=== PATIENT | male | born 1980 | race Caucasian/White ===

== ENCOUNTER 2019-12-11 15:01 | Outpatient (REF) | payer OTHER, SELFPAY | END 2019-12-11 15:02 | disposition home or self-care (01) | LOC: HO.LAB 15:01 | PROVIDERS: Visit Provider Internal Medicine | DX: Z20.828 Contact with and (suspected) exposure to other viral communicable diseases (principal) | CPT/HCPCS: 36415; 87635 ==

== ENCOUNTER 2022-12-30 01:08 | Emergency (ER) | payer BC, SELFPAY ==
--- NOTE | 2022-12-30 | ECG_ITS ---
Test Reason : CHEST PAIN Blood Pressure : / mmHG Vent. Rate : 096 BPM Atrial Rate : 096 BPM P-R Int : 142 ms QRS Dur : 080 ms QT Int : 334 ms P-R-T Axes : 064 026 051 degrees QTc Int : 421 ms Normal sinus rhythm Normal ECG No previous ECGs available Referred By: Generic ED Physician Electronically Signed By:YOMAIRA GOMEZ MD
--- NOTE | ~2022-12-30 | XR_ITS ---
EXAMINATION: XR CHEST CLINICAL INFORMATION: Left-sided chest pain COMPARISON: None available. TECHNIQUE: 2 views of the chest were obtained. FINDINGS: Slight bronchial thickening which can be seen in setting of infectious/inflammatory etiology. Bibasilar atelectasis. No pneumothorax. Trachea is midline. Cardiomediastinal silhouette is not enlarged. No large pleural effusion. Osseous structures are intact. Soft tissues are unremarkable. XR/XR chest 2V IMPRESSION: 1. Slight bronchial thickening which can be seen in setting of infectious/inflammatory etiology. 2. Bibasilar atelectasis.
[2022-12-30 01:21] VITALS: BP 122/75; PULSE 94; RESP 16; TEMP 36.5; O2SAT 99; BMI 24.4
[2022-12-30 01:44] LABS: MANUAL DIFF FLAG NO
[2022-12-30 01:45] LABS: Basophils Percent Auto 0.5 % (0-2); Eosinophils Absolute Auto 0.1 X10*3/uL (0.0-0.4); Eosinophils Percent Auto 1.6 % (0-4); Hemoglobin 17.6 g/dl (14.0-18.0); Imm Gran Abs Auto 0.02 X10*3/uL (0.00-0.03); Imm Gran Pct Auto 0.2 % (0.0-0.4); Lymphocytes Absolute Auto 3.2 X10*3/uL (1.2-4.9); Lymphocytes Percent Auto 39.3 % (20-40); Mean Corpuscular HGB Conc 34.5 g/dl (31.0-36.0); Mean Corpuscular Volume 89.8 fL (80.0-98.0); Mean Platelet Volume 9.5 fL (9.4-12.4); Monocytes Absolute Auto 0.8 X10*3/uL (0.1-1.2); Monocytes Percent Auto 9.4 % (2-11); Platelet Count 290 X10*3/uL (160-400); Red Blood Count 5.68 X10*6/uL (4.60-5.80); Red Cell Distribution Width 12.3 % (11.0-16.0); White Blood Count 8.2 X10*3/uL (4.8-10.8)
[2022-12-30 02:00] LABS: Anion Gap 17 (12-20); Blood Urea Nitrogen 6 mg/dL (9-16); Calcium 9.5 mg/dL (8.4-10.2); Carbon Dioxide 21 mmol/L (22-29); Chloride 105 mmol/L (96-108); Creatinine Clr Calc Pharmacy 130.3; Estimated Glomerular Filt Rate > 60; Glucose Random 110 mg/dL (60-115); Potassium 3.8 mmol/L (3.3-5.1); Sodium 139 mmol/L (135-145)
[2022-12-30 02:06] LABS: Troponin-I High Sensitivity < 2.7 ng/L (<3.5-35.0)
[2022-12-30] MEDS: Acetaminophen 325 MG TABLET 975 MG PO (02:11)
[2022-12-30 06:30] VITALS: BP 106/69; PULSE 88; RESP 17; TEMP 36.7; O2SAT 94
--- NOTE | 2022-12-30 06:49 | ED.CHESTPAIN ---
HPI - Chest Pain General Chief Complaint: Chest Pain Stated Complaint: Chest Pain Time Seen by Provider: 12/30/22 06:28 Source: patient Mode of arrival: ambulatory Limitations: no limitations History of Present Illness HPI narrative: 42 yo male otherwise healthy who presents to the ER for evaluation of left sided constant, sharp, non-radiating chest pain for the last 3 days. It came on gradually when he was at home doing nothing in particular. He denies any other associated symptoms including SOB, cough, nausea, shoulder pain, back pain, abdominal pain, fever or chills. He has not taken any medications for the pain. No history of similar episodes. MD complaint: chest pain Onset (ago): day(s) (3) Timing of current episode: constant Prior episodes: No Onset: during rest Pain location: left chest Pain radiation: none Severity: moderate Pain scale (0-10): 7 Quality: sharp Relieving factors: nothing Exacerbating factors: nothing Treatment prior to arrival: none Risk Factors Coronary artery disease risk factors: none Thoracic aortic dissection risk factors: none Related Data Allergies Allergy/AdvReac Type Severity Reaction Status Date / Time No Known Allergies Allergy Verified 12/30/22 01:27 Review of Systems Review of Systems: Yes all other systems are reviewed and are negative [facility] Social History Social History Advance Directives: No Advance Directives Information Provided: Yes Physical Exam Vital Signs: Vital Signs: Last Vital Signs Temp 98.2 F 12/30/22 08:04 Pulse 79 12/30/22 08:04 Resp 18 12/30/22 08:04 BP 110/66 12/30/22 08:04 Pulse Ox 96 12/30/22 08:04 O2 Del Method Room Air 12/30/22 08:04 BMI result Body Mass Index 24.4 Appearance: Alert. Oriented X3. No acute distress. Head: normocephalic, atraumatic. Eyes: Pupils equal, round and reactive to light. ENT: Pharynx normal. No tonsillar swelling or exudate. Neck: Normal inspection. Neck supple. CVS: Normal heart rate and rhythm. Pulses normal. No chest wall tenderness. Respiratory: No respiratory distress. Breath sounds normal. Abdomen: Soft and nontender. +BS x4 Skin: Skin warm and dry. Normal skin color. Normal skin turgor. No rashes. Extremities: No lower extremity edema. No joint swelling. No calf swelling or tenderness. Neuro/psych: Oriented X 3. No motor deficit. No sensory deficit. CN II-XII intact. Normal speech and cognition. Medications Administered Discontinued Medications Generic Name Dose Route Start Last Admin Trade Name Alexandrea PRN Reason Stop Dose Admin Acetaminophen 975 mg 12/30/22 01:56 12/30/22 02:11 Acetaminophen 325 Mg Tablet PO 12/30/22 01:57 975 mg ONCE ONE Administration Ketorolac Tromethamine 30 mg 12/30/22 06:48 12/30/22 07:02 Ketorolac Tromethamine 30 Mg/Ml Vial IM 12/30/22 06:49 30 mg ONCE ONE Administration Medical Decision Making Medical Decision Making [facility] Narrative: 42 yo male presenting with 3 days of constant, sharp, left sided chest pains, nonradiating. VSS on arrival and exam is unremarkable. EKG without ischemic changes and troponin negative. cxr w/ mild bronchial wall thickening, no focal PNA. he has no cough or URI symptoms at this time. given tylenol and toradol with improvement in pain doubt cardiac etiology given his workup and assessment today comfortable w/ discharge home with return precautions and outpatient follow up Differential Diagnosis Differential Diagnoses: The differential diagnosis associated with the presentation includes PNA, costochondritis, myocarditis, pericarditis, less likely PE, ACS or dissection Admission/Observation Consideration of admission/observation: Escalation of care including admission/observation considered considered admit on arrival, cardiac workup is unremarkable, feeling better after meds Lab Data [facility] Lab Attestation statement: I reviewed the patient's lab results. negative trop, no anemia 12/30/22 01:40 12/30/22 01:40 Labs: Lab Results 12/30/22 Range/Units 01:40 WBC 8.2 (4.8-10.8) X10*3/uL RBC 5.68 (4.60-5.80) X10*6/uL Hgb 17.6 (14.0-18.0) g/dl Hct 51.0 (42.0-52.0) % MCV 89.8 (80.0-98.0) fL MCH 31.0 (27.0-33.0) pg MCHC 34.5 (31.0-36.0) g/dl RDW 12.3 (11.0-16.0) % Plt Count 290 (160-400) X10*3/uL MPV 9.5 (9.4-12.4) fL Immature Gran % (Auto) 0.2 (0.0-0.4) % Neut % (Auto) 49.0 (45-73) % Lymph % (Auto) 39.3 (20-40) % Spink % (Auto) 9.4 (2-11) % Eos % (Auto) 1.6 (0-4) % Baso % (Auto) 0.5 (0-2) % Lymph # (Auto) 3.2 (1.2-4.9) X10*3/uL Spink # (Auto) 0.8 (0.1-1.2) X10*3/uL Eos # (Auto) 0.1 (0.0-0.4) X10*3/uL Baso # (Auto) 0.0 (0.0-0.2) X10*3/uL Abs Immat Gran (auto) 0.02 (0.00-0.03) X10*3/uL Absolute Neuts (auto) 4.0 (2.0-8.3) x10*3/uL Absolute Nucleated RBC 0.000 (0.0-0.012) X10*3/uL Nucleated RBC % (auto) 0.0 (0.0-0.2) /100WBC Sodium 139 (135-145) mmol/L Potassium 3.8 (3.3-5.1) mmol/L Chloride 105 (96-108) mmol/L Carbon Dioxide 21 L (22-29) mmol/L Anion Gap 17 (12-20) BUN 6 L (9-16) mg/dL Creatinine 0.77 (0.5-1.4) mg/dL Estim Creat Clear Calc 130.3 Estimated GFR > 60 Random Glucose 110 (60-115) mg/dL Calcium 9.5 (8.4-10.2) mg/dL Troponin I High Sens < 2.7 (<3.5-35.0) ng/L Independent Interpretation I performed an independent interpretation of an: EKG and Plain X-Ray Interpretation: cxr without lobar pna, question atelectasis at the bases, agree w/ radiology read ekg w/ normal sinus rhythm, hr 96 bpm, normal VT interval and QTc, no ST segment elevations or depressions Radiology Impression Discussion of test interpretation with radiology: I have reviewed the radiologist's reading. Radiologist Impression: EXAMINATION: XR CHEST CLINICAL INFORMATION: Left-sided chest pain COMPARISON: None available. TECHNIQUE: 2 views of the chest were obtained. FINDINGS: Slight bronchial thickening which can be seen in setting of infectious/inflammatory etiology. Bibasilar atelectasis. No pneumothorax. Trachea is midline. Cardiomediastinal silhouette is not enlarged. No large pleural effusion. Osseous structures are intact. Soft tissues are unremarkable. XR/XR chest 2V IMPRESSION: 1. Slight bronchial thickening which can be seen in setting of infectious/inflammatory etiology. 2. Bibasilar atelectasis. Prescription Management I considered prescription management with: Pain Medication Scores Heart Score History: -0- slightly suspicious ECG: -0- normal Age: -0- < or = 45 Risk factory: -0- no risk factors known Troponin: -0- < or = normal limit Score: 0 Risk: 1.7% Critical Care Time Critical Care Time Critical Care Time: No Discharge Plan Discharge Clinical Impression: Atypical chest pain Patient Disposition: Home, Self-Care Instructions: Noncardiac Chest Pain (ED) Additional Instructions: Your workup today including labs and EKG were unremarkable. Your chest x-ray showed some bronchial wall thickening which is commonly seen in viral sickness. Your chest pains are not likely to be cardiac. Recommend rest, tylenol and motrin as needed for pain Follow up with a primary care doctor as soon as possible If you develop new or worsening symptoms call 911 or come back to the ER for further evaluation. Referrals: [facility] [Provider Group] [facility] [place] [facility] [Provider Group] [facility] [place] [facility]] [facility] [place] Primary [facility] [Provider Group] Interventions: ED Discharge Assessment Last Done: 12/30/22 08:47 Discharge Date/Time: 12/30/22 08:47
[2022-12-30] MEDS: Ketorolac Tromethamine 30 MG/ML VIAL IM (07:02)
[2022-12-30 08:04] VITALS: BP 110/66; PULSE 79; RESP 18; TEMP 36.8; O2SAT 96
== END 2022-12-30 08:47 | disposition home or self-care (01) ==
PROVIDERS: Emergency Provider Internal Medicine
DX: R07.89 Other chest pain (principal)
CPT/HCPCS: 36415; 71046; 80048; 84484; 85025; 93005; 96372; 99284; 99285; J1885

== ENCOUNTER 2023-01-08 14:47 | Emergency (ER) | payer BC, SELFPAY ==
[2023-01-08 15:30] VITALS: BP 135/81; PULSE 92; RESP 20; TEMP 36.4; O2SAT 97; BMI 24.4
--- NOTE | 2023-01-08 15:33 | ED_ITS ---
HPI - Skin/Abscess/Foreign Bdy General Chief complaint: Skin/Abscess/Foreign Body Stated complaint: Rash on chest Time Seen by Provider: 01/08/23 15:33 Source: patient and RN notes reviewed Mode of arrival: ambulatory Limitations: no limitations History of Present Illness HPI narrative: This is a 42-year-old male presenting to the emergency department with complaints of rash on his chest x1 week. Patient states that he was seen here 1 week ago where he had EKG leads placed. He states that several days later he noticed spots appearing onto his chest where the leads were placed. He denies shaving his chest. He states that the rash is painful and slightly itchy. He denies any chest pain, shortness of breath, fevers or chills. Denies difficulty swallowing. He denies history of similar rashes. Denies taking any medications at home to treat his symptoms. MD complaint: rash Onset (ago): day(s) Relieving factors: none Exacerbating factors: none Context: none Associated symptoms: denies other symptoms Treatments prior to arrival: none Related Data Previous Rx's Medication Instructions Recorded cephalexin 250 mg capsule 250 mg PO QID 7 days #28 caps 01/08/23 doxycycline hyclate 100 mg tablet 100 mg PO BID 7 days #14 tabs 01/08/23 Allergies Allergy/AdvReac Type Severity Reaction Status Date / Time No Known Allergies Allergy Verified 12/30/22 01:27 Review of Systems Review of Systems: Yes all other systems are reviewed and are negative [facility] Past Medical History Attestation statement: The following information was validated with the patient. Social History Social History Advance Directives: No Advance Directives Information Provided: No Physical Exam Vital Signs: Vital Signs: Last Vital Signs Temp 97.5 F 01/08/23 15:30 Pulse 92 01/08/23 15:30 Resp 20 01/08/23 15:30 BP 135/81 01/08/23 15:30 Pulse Ox 97 01/08/23 15:30 O2 Del Method Room Air 01/08/23 15:30 BMI result Body Mass Index 24.4 Const: Other: General: Awake, alert, and oriented X3. No acute distress. HEENT: Normal inspection, airway patent. CVS: Normal heart rate and rhythm. Pulses normal. Respiratory: No respiratory distress, Lungs CTAB Skin: Anterior chest wall there is multiple scattered macular papular rash with pustules, no surrounding erythema, drainage. Extremities: Normal to inspection Neuro: Oriented X 3. No motor deficit. No sensory deficit. Medical Decision Making Medical Decision Making [facility] Narrative: 42 y/o M presenting to the ER with complaints of rash on chest x 1 week. On arrival, VSS. Pt has folliculitis like appearing rash on chest. No difficulty breathing or swallowing, otherwise asymptomatic. Will treat with abx and given return precautions. Pt understands and agrees with plan. Stable for d/c. Differential Diagnosis Differential Diagnoses: The differential diagnosis associated with the presentation includes folliculitis, contact dermatitis, cellulitis Discharge Plan Discharge Clinical Impression: Folliculitis Patient Disposition: Home, Self-Care Instructions: Folliculitis (ED) Additional Instructions: Your rash appears be some occult folliculitis, this is inflammation and infection of the hair follicles. Please take prescribed antibiotics. Finish the entire course both of these even if your feeling better. You may gently cleanse the area with mild soap and water. If any new or worsening symptoms occur including but not limited to worsening redness, pain, fevers, chills, please return for re-evaluation. Prescriptions: New doxycycline hyclate 100 mg tablet 100 mg PO BID 7 Days Qty: 14 0RF cephalexin 250 mg capsule 250 mg PO QID 7 Days Qty: 28 0RF Interventions: ED Discharge Assessment Last Done: 01/08/23 15:38 Discharge Date/Time: 01/08/23 15:39
== END 2023-01-08 15:39 | disposition home or self-care (01) ==
LOC: HO.ED 15:38
PROVIDERS: Emergency Provider Emergency Medicine
DX: L73.9 Follicular disorder, unspecified (principal); R21 Rash and other nonspecific skin eruption
CPT/HCPCS: 99282; 99283